=== PATIENT | female | born 1955 | race Caucasian/White ===

== ENCOUNTER → 2017-02-28 | Outpatient (CLI) | payer OTHER ==
[~2017-02-28] MED LIST: ASPIRIN81 M2 PO; CELEXA PO; CLINDAMYCIN HC300 MG PO; FLAGYL I.V500 MG/100 IV; FLAGYL PO; LASIX PO; LISINOPRIL20 MG PO; METHADONE PO; MORPHINE 22 MG/1 ML IV; POTASSIUM CHLO10 ME1 PO; PROMETHEGAN12.5 MG PO; PROTONIX20 MG IV; ROCEPHIN1 G/VIAL IV; TALADINE150 MG PO; ZOFRAN 2 MG4 MG/2 ML IV
--- NOTE | ~2017-02-28 | US136 ---
[facility] A Service of [facility] & [facility] RADIOLOGY TEXT RESULTS PATIENT: LYNNE HINDS LOCATION: CNIV : 55 UNIT #: [id number] AGE: [address]: Ayana Sykes SEX: F ORDER DR: [id number] [facility] [address] [place], [place] [address] [id number] O MR#: [id number] Acc #: [id number] NAME: LYNNE HINDS : 1955 SEX: F STUDY DATE/TIME: 02/28/2017 11:30 UNIT: CNIV ROOM: STUDY DESCRIPTION: U/L [facility] [employer] Bil Attending Physician: Ayana Sykes A.P.R.N. Referring Physician: Ayana Sykes A.P.R.N. Ordering Physician: Ayana Sykes A.P.R.N. Primary Care Physician: Ayana Sykes A.P.R.N. MEDICAL IMAGING REPORT This report is preliminary unless electronic signature is present EXAM Bilateral lower extremity ankle-brachial indices, 02/28/2017 HISTORY Hypertension, tobacco usage, bilateral claudication. FINDINGS Ankle-brachial indices performed bilaterally. All pressure measurements in mmHg. Right brachial pressure 133, left brachial pressure 124. Distal right lower extremity pressures as follows: Dorsalis pedis at ankle 147, posterior tibial at ankle 138, great toe 100. Ankle-brachial index 1.11. Pulse volume recordings within normal limits. On the left, distal pressures as follows: Dorsalis pedis at ankle 130, posterior tibial at ankle 121, great toe 111. Pulse volume recordings biphasic to very weakly triphasic at the left ankle and biphasic at the left great toe. Ankle-brachial index on left 0.98 IMPRESSION 1. Ankle-brachial indices of 1.11 on right and 0.98 on left are normal values. There appears to be adequate perfusion of the bilateral lower extremities in the resting state. Please correlate with the patient's clinical status. If it would assist in further management, lower extremity arterial anatomy could be further assessed with CT angiography, if patient is a candidate. Dictated by... Ellis Gallardo M.D. THIS IS AN ELECTRONICALLY VERIFIED REPORT [facility] A Service of [facility] RADIOLOGY TEXT RESULTS PATIENT: LYNNE HINDS LOCATION: [facility] : 55 UNIT #: [id number] AGE: [address]: Ayana Sykes SEX: F ORDER DR: Ellis Gallardo M.D. at 03/02/2017 7:36 AM KAREN/champ TD: 03/01/2017 00:03 JOB #: [id number] MEDICAL IMAGING REPORT Page 1 of 1 COPY
== END | disposition home or self-care (01) ==
LOC: CNIV 11:00
DX: R60.0 Localized edema (principal)
CPT/HCPCS: 93922